=== PATIENT | male | born 1995 | race Caucasian/White ===

== ENCOUNTER 2017-01-26 10:29 | Emergency (ER) | payer MEDICAID ==
[~2017-01-26] VITALS: Wt 78.2 kg
[2017-01-26] MEDS ORDERED: IBUP-1542 PO (11:37)
[2017-01-26] MEDS ORDERED: NEOM28OI TP (11:37)
--- NOTE | 2017-01-26 11:45 | ERD ---
ER Documentation Chief Complaint Date/Time DATE: 01/26/17 TIME: 11:40 Chief Complaint RIGHT PINKY FINGER LACERATION THIS AM BLEEDING CONTROLLED HPI See work comp report below for right fifth digit laceration. ROS All systems reviewed and are negative except as per history of present illness. Medications Home Meds Active Scripts Neomycin Nieto/Bacitrac Zn/Poly (Triple Antibiotic Ointment) 28 Gm Oint...g., 28 GM TP QID for 7 Days Prov:WILL HAN MD 01/26/17 Ibuprofen* (Motrin*) 600 Mg Tab, 600 MG PO Q6, #15 TAB Prov:WILL HAN MD 01/26/17 Allergies Allergies: Coded Allergies: No Known Allergy (Unverified , 01/26/17) PMhx/Soc Medical and Surgical Hx: pt denies Medical Hx, pt denies Surgical Hx Hx Alcohol Use: No Hx Substance Use: No Hx Tobacco Use: No Smoking Status: Never smoker Physical Exam Vitals Vital Signs Date Time Temp Pulse Resp B/P Pulse Ox O2 Delivery O2 Flow Rate FiO2 01/26/17 10:35 97.8 78 20 122/68 99 Physical Exam 18. 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 Tetanus is up-to-date by history 19. Objective findings-afebrile vital signs stable. There is a 0.5 cm avulsion type laceration on the medial aspect of the right fifth digit pad. There is no involvement of the bone is no restricted range of motion or weakness or evidence of tendon disruption. 19 B. X-ray and laboratory results-none 20. Diagnosis-superficial laceration or skin avulsion on the tip of the right fifth digit 21. Findings and diagnosis consistent with patient's account of injury and onset?-Yes 22. Conditions that will impede or delay the patient's recovery? No 23. Treatment rendered-examinATION, history and wound care. Further treatment required-patient will require wound check in 2 days with occupational medicine clinic of employer 24. Patient hospitalized?-No 25. Work status- Able to perform usual work-no. Patient can return on-January 26, 2017. Restrictions-keep wound clean and dry and covered and wear gloves if handling food. Limited use of right hand Results 24 hrs Current Medications Medications (Trade) Dose Ordered Sig/Tamela Route PRN Reason Start Time Stop Time Status Last Admin Dose Admin Ibuprofen (Motrin) 600 mg ONCE ONCE PO 01/26/17 12:00 01/26/17 12:01 Acetaminophen/ Codeine Phosphate (Tylenol No.3) 1 tab ONCE ONCE PO 01/26/17 12:00 01/26/17 12:01 Departure Diagnosis: Primary Impression: Laceration Condition: Stable Patient Instructions: Laceration, Small/Superficial, Not Sutured Additional Instructions: Follow-up with occupational medicine clinic of your employer in 2 days. Recommend keep wound clean and dry or use gloves when handling food until cleared by clinic. WILL HAN MD Jan 26, 2017 11:45
[2017-01-26] MEDS ORDERED: traMADol 50 MG TAB PO ONE (12:00)
[2017-01-26] MEDS ORDERED: IBUPROFEN 600 MG TAB PO ONE (12:00)
[2017-01-26] MEDS ORDERED: ACETAMINOPHEN/CODEINE #3 TAB PO ONE (12:00)
== END 2017-01-26 12:21 | disposition home or self-care (01) ==
LOC: FTE 10:29 → EDBD 10:29 → FTE 12:21
DX: S61.216A Laceration without foreign body of right little finger without damage to nail, initial encounter (principal); W29.0XXA Contact with powered kitchen appliance, initial encounter; Y92.9 Unspecified place or not applicable
CPT/HCPCS: Z7502; Z7610; 99283

== ENCOUNTER 2017-01-29 11:14 | Emergency (ER) | payer MEDICAID ==
[~2017-01-29] VITALS: Ht 165.1 cm; Wt 77.7 kg
[~2017-01-29 11:14] MED LIST: IBUP-1542 PO; NEOM28OI TP
[2017-01-29 11:30] VITALS: Ht 165.1 cm; Wt 77.7 kg
[2017-01-29] MEDS ORDERED: BAC30OI TOP (12:34)
[2017-01-29] MEDS ORDERED: CEPH-443 PO (12:34)
--- NOTE | 2017-01-29 14:39 | ERD ---
DATE OF SERVICE: HISTORY OF PRESENT ILLNESS: The patient is a 21-year-old male coming in complaining of pain to his right 5th digit. The patient cut it using a slicer at work 2 days ago. He is up to date on his tet anus shot. He is right hand dominant. He was seen at that time and it was decided that there shoul d not be sutures placed; however, he continued to have pain, and he did not fill his prescription fo r bacitracin or Keflex because he lost the prescription. PAST MEDICAL HISTORY: He denies any other medical problems. ALLERGIES: DENIES ALLERGIES TO MEDICATIONS. PAST SURGICAL HISTORY: Denies. SOCIAL HISTORY: Denies. REVIEW OF SYSTEMS: A 12-point review of systems was done. Refer to HPI for positives, all other sy stems negative. PHYSICAL EXAMINATION: VITAL SIGNS: Temperature is 97.8, pulse 70, blood pressure is 117/76, respiratory rate 16, O2 satur ation 98% on room air. Pain intensity of 10/10. GENERAL: The patient is well-appearing, well-nourished, no acute distress. HEART: Regular rate and rhythm. No murmurs, clicks, rubs or gallops. No S3 or S4. CHEST: Clear to auscultation bilaterally. There are no rales, wheezes or rhonchi. EXTREMITIES: Equal pulses bilaterally. There is no peripheral clubbing, cyanosis or edema. No focal swelling or erythema. Full range of motion. Grossly neurovascularly intact. SKIN: There is a healing superficial laceration noted on the right medial aspect of the 5th digit d istal tip. No complete avulsion, no active bleeding, no foreign bodies, no tendon or ligament injur ies. EMERGENCY ROOM COURSE: Op site was cleaned and a bandage was applied. There was no indication for suturing or other procedures answered at this time. DIAGNOSIS: Laceration and healing. MEDICAL DECISION MAKING: I have low suspicion for tendon or ligament injury; low suspicion for neur o deficit, low suspicion for retained foreign bodies or active bleeding. The patient's exam is with in normal limits and I have low suspicion for infection. DISCHARGE: The patient is discharged stable. The patient is given prescription for bacitracin and Keflex and told to follow up with primary care within 1 to 2 days for reevaluation. The patient was told if symptoms progress or worsen to return to the ER. All of the patient's questions answered a t time of discharge. Discharge summary given at the time of departure. The patient understood and complied with plan. Dictated By: ZAK SAMANO for YEIMY GALVEZ/DARIO Conf#: [id number] DID#: [id number]
== END 2017-01-29 13:01 | disposition home or self-care (01) ==
LOC: FTE 11:14
DX: S61.216D Laceration without foreign body of right little finger without damage to nail, subsequent encounter (principal); W29.0XXD Contact with powered kitchen appliance, subsequent encounter; Y92.89 Other specified places as the place of occurrence of the external cause
CPT/HCPCS: 99283

== ENCOUNTER 2019-01-18 08:24 | Emergency (ER) | payer OTHER ==
[~2019-01-18] VITALS: Ht 170.2 cm; Wt 77.6 kg
[~2019-01-18 08:24] MED LIST changes: +AMOX500C2 PO; +BACI28.34 TOP; +CEPH-443 PO; -NEOM28OI TP; +NEOM28OI2 TP
[2019-01-18 08:28] VITALS: BP 132/75; PULSE 68; RESP 18; Ht 170.2 cm; Wt 77.6 kg
[2019-01-18] MEDS ORDERED: LIDOCAINE 1% (MPF) 5 ML VIAL INJ ONE (09:30)
[2019-01-18] MEDS ORDERED: BACI28.34 TOP (09:54)
[2019-01-18] MEDS ORDERED: NPH10OT RIGHT EAR (10:04)
--- NOTE | 2019-01-18 10:07 | ERD ---
ER Documentation Chief Complaint Chief Complaint left ingrown toenail and right ear pain x 2 days HPI 23-year-old male presenting with pain to his left great toe. Patient also has pain to his right ear. Patient had pain for the last 2 days. He claims his ears with Q-tips. Denies any headaches. Denies any runny nose. Denies fever. Has not taken medications for symptoms. Patient has noted some purulent drainage from his toenail. Denies other medical problems. NKDA. Surgical history denies. Social history denies ROS All systems reviewed and are negative except as per history of present illness. Medications Home Meds Active Scripts Bacitracin* (Bacitracin Zinc Oint*) 28.35 Gm Oint, 1 APPLIC TOP BID, #1 TUB APPLI TO Prov:GIRISH BELL PA-C 01/18/19 Amoxicillin* (Amoxicillin*) 500 Mg Cap, 500 MG PO BID for sinusitis for 5 Days, #10 CAP Prov:JEWEL SALAMANCA DO 12/03/18 Ibuprofen* (Ibuprofen*) 600 Mg Tablet, 600 MG PO Q6H PRN for PAIN, #30 TAB Prov:JEWEL SALAMANCA DO 12/03/18 Bacitracin* (Bacitracin Zinc Oint*) 28.35 Gm Oint, 1 APPLIC TOP BID, #1 TUB APPLI TO Prov:GIRISH BELL PA-C 01/29/17 Cephalexin* (Keflex*) 500 Mg Capsule, 500 MG PO QID for 5 Days, CAP Prov:GIRISH BELL PA-C 01/29/17 Neomycin Nieto/Bacitrac Zn/Poly (Triple Antibiotic Ointment) 28 Gm Oint...g., 28 GM TP QID for 7 Days Prov:WILL HAN MD 01/26/17 Ibuprofen* (Motrin*) 600 Mg Tab, 600 MG PO Q6, #15 TAB Prov:WILL HAN MD 01/26/17 Allergies Allergies: Coded Allergies: No Known Allergy (Unverified , 12/03/18) PMhx/Soc Medical and Surgical Hx: pt denies Medical Hx, pt denies Surgical Hx Hx Alcohol Use: No Hx Substance Use: No Hx Tobacco Use: No Smoking Status: Never smoker FmHx Family History: No diabetes, No coronary disease, No other Physical Exam Vitals Vital Signs Date Temp Pulse Resp B/P (MAP) Pulse Ox O2 O2 Flow FiO2 Time Delivery Rate 01/18/19 97.6 68 18 132/75 98 08:28 (94) Physical Exam GENERAL: The patient is well-appearing, well-nourished, in no acute distress HEENT: Atraumatic. Conjunctivae are pink. Pupils equal, round, and reactive to light. There is no scleral icterus. Tympanic membranes clear bilaterally. Erythema noted to the external portion of the right ear. Positive tragal tenderness. oropharynx clear. CHEST: Clear to auscultation bilaterally. There are no rales, wheezes or rhonchi. HEART: Regular rate and rhythm. No murmurs, clicks, rubs or gallops. EXTREMITIES: No focal swelling or erythema. Full range of motion. Grossly neurovascularly intact. NEUROLOGIC: Motor strength in all 4 extremities with 5 out of 5 strength. Sensation grossly intact. SKIN: Erythema noted to the lateral portion of the great toenail. Mild swelling noted. Results 24 hrs Current Medications Medications Dose Sig/Tamela Start Time Status Last (Trade) Ordered Route PRN Stop Time Admin Dose Reason Admin Lidocaine 5 ml ONCE ONCE 01/18/19 DC (Xylocaine INJ 09:30 1% (Mpf)) 01/18/19 09:31 Procedures/MDM ER course: Digital block was performed to the left great toe. Site was adequately anesthetized and lateral portion of the toenail was removed without complication. Site was cleaned and bandage. MDM: 23-year-old male presenting with ingrown toenail. Patient also has findings consistent with otitis externa. I have low suspicion for neuro deficit. I have low suspicion for deep tracking infection. Patient is discharged after procedure and told to follow-up with primary care within 1-2 days for close evaluation. I have low suspicion for mastoiditis. I have low suspicion for otitis media. Patient is told symptoms change or worsen to return immediately to the ER. All questions answered at discharge Departure Diagnosis: Primary Impression: Ingrown toenail Condition: Stable Patient Instructions: Ingrown Toenail, Excised Additional Instructions: FOLLOW UP WITH YOUR PRIMARY CARE PHYSICIAN TOMORROW.Return to this facility if you are not improving as expected. GIRISH BELL PA-C Jan 18, 2019 10:07
== END 2019-01-18 10:14 | disposition home or self-care (01) ==
LOC: FTE 08:24
DX: L60.0 Ingrowing nail (principal)
CPT/HCPCS: 11765; Z7502; Z7610

== ENCOUNTER 2019-04-21 01:16 | Emergency (ER) | payer MEDICAID, OTHER ==
[~2019-04-21] VITALS: Ht 162.6 cm; Wt 27.3 kg
[~2019-04-21 01:16] MED LIST changes: +NPH10OT RIGHT EAR
[2019-04-21 01:31] VITALS: Ht 162.6 cm; Wt 27.3 kg
[2019-04-21] MEDS ORDERED: metroNIDAZOLE 500 MG TAB PO STA (01:38)
[2019-04-21] MEDS ORDERED: AZITHROMYCIN 250 MG TAB PO STA (01:38)
[2019-04-21] MEDS ORDERED: CEFTRIAXONE 250 MG INJ IM STA (01:38)
[2019-04-21 02:20] VITALS: BP 115/66; PULSE 55; RESP 16
--- NOTE | 2019-04-21 05:52 | ERD ---
ER Documentation Chief Complaint Chief Complaint GIRFRIEND TREATED FOR GC/CLYMIDIA - REQUESTING TREATMENT HPI 23-year-old male with history of STDs presents the ED requesting STD treatment. Patient is here with his girlfriend to test positive for trichomonas. Patient's denies any penile discharge. Denies any penile swelling or pain. Denies any fevers or chills. He states he would like treatment for gonorrhea and chlamydia as well. He is otherwise asymptomatic and has no complaints. ROS All systems reviewed and are negative except as per history of present illness. Medications Home Meds Active Scripts Neomycin/Polymyxin/Hydrocort* (Cortisporin* Otic) 10 Ml Susp, 4 DROP RIGHT EAR QID for 7 Days, EA Prov:GIRISH BELL PA-C 01/18/19 Bacitracin* (Bacitracin Zinc Oint*) 28.35 Gm Oint, 1 APPLIC TOP BID, #1 TUB APPLI TO Prov:GIRISH BELL PA-C 01/18/19 Amoxicillin* (Amoxicillin*) 500 Mg Cap, 500 MG PO BID for sinusitis for 5 Days, #10 CAP Prov:JEWEL SALAMANCA DO 12/03/18 Ibuprofen* (Ibuprofen*) 600 Mg Tablet, 600 MG PO Q6H PRN for PAIN, #30 TAB Prov:JEWEL SALAMANCA DO 12/03/18 Bacitracin* (Bacitracin Zinc Oint*) 28.35 Gm Oint, 1 APPLIC TOP BID, #1 TUB APPLI TO Prov:GIRISH BELL PA-C 01/29/17 Cephalexin* (Keflex*) 500 Mg Capsule, 500 MG PO QID for 5 Days, CAP Prov:GIRISH BELL PA-C 01/29/17 Neomycin Nieto/Bacitrac Zn/Poly (Triple Antibiotic Ointment) 28 Gm Oint...g., 28 GM TP QID for 7 Days Prov:WILL HAN MD 01/26/17 Ibuprofen* (Motrin*) 600 Mg Tab, 600 MG PO Q6, #15 TAB Prov:WILL HAN MD 01/26/17 Allergies Allergies: Coded Allergies: No Known Allergy (Unverified , 12/03/18) PMhx/Soc Medical and Surgical Hx: pt denies Medical Hx, pt denies Surgical Hx History of Surgery: No Anesthesia Reaction: No Hx Neurological Disorder: No Hx Respiratory Disorders: No Hx Cardiac Disorders: No Hx Psychiatric Problems: No Hx Miscellaneous Medical Probl: No Hx Alcohol Use: No Hx Substance Use: Yes (MJ) Hx Tobacco Use: No Smoking Status: Never smoker Physical Exam Vitals Vital Signs Date Temp Pulse Resp B/P (MAP) Pulse Ox O2 O2 Flow FiO2 Time Delivery Rate 04/21/19 97.9 55 16 115/66 100 Room Air 02:20 (82) 04/21/19 98.0 68 16 112/59 99 01:31 (76) Physical Exam Const: No acute distress Head: Atraumatic Eyes: Normal Conjunctiva ENT: Normal External Ears, Nose and Mouth. Neck: Full range of motion. No meningismus. Resp: Clear to auscultation bilaterally Cardio: Regular rate and rhythm, no murmurs Ext: No cyanosis, or edema Neur: Awake and alert Psych: Normal Mood and Affect Results 24 hrs Laboratory Tests Test 04/21/19 02:00 Urine Color YELLOW Urine Clarity SLIGHTLY CLOUDY Urine pH 5.0 Urine Specific [place] 1.034 Urine Ketones NEGATIVE mg/dL Urine Nitrite NEGATIVE mg/dL Urine Bilirubin NEGATIVE mg/dL Urine Urobilinogen 1+ mg/dL Urine Leukocyte Esterase NEGATIVE Eri/ul Urine Microscopic RBC 1 /HPF Urine Microscopic WBC 1 /HPF Urine Squamous Epithelial Cells FEW /HPF Urine Calcium Oxalate Crystals FEW /HPF Urine Mucus MODERATE /HPF Urine Hemoglobin NEGATIVE mg/dL Urine Glucose NEGATIVE mg/dL Urine Total Protein NEGATIVE mg/dl Current Medications Medications Dose Sig/Tamela Start Time Status Last (Trade) Ordered Route PRN Stop Time Admin Dose Reason Admin 1,000 mg ONCE STAT 04/21/19 DC 04/21/19 Azithromycin PO 01:38 01:53 (Zithromax) 04/21/19 01:40 Ceftriaxone 250 mg ONCE STAT 04/21/19 DC 04/21/19 Sodium IM 01:38 01:53 (Rocephin) 04/21/19 01:40 2,000 mg ONCE STAT 04/21/19 DC 04/21/19 Metronidazole PO 01:38 02:04 (Flagyl) 04/21/19 01:40 Procedures/MDM LABS: Urine CG/CT cx: pending UA: negative, no evidence of infection MDM: This is a 23-year-old sexually active male presents the ED for prophylactic treatment of STDs. He has had STDs before. He is here with his girlfriend who tested positive for trichomonas. Patient was given a prophylactic dose of ceftriaxone, azithromycin, and metronidazole. His urine was sent out for gonorrhea and chlamydia culture testing. Patient has stable vital signs here. No fever. He is stable for outpatient management and follow-up. I recommended safe sexual and hygiene practices. Strict return precautions were discussed. Departure Diagnosis: Primary Impression: Trichomonas contact Additional Impression: STD exposure Condition: Stable Patient Instructions: Understanding STDs Additional Instructions: Call your primary care doctor TOMORROW for an appointment during the next 2-4 days and bring all the information and medications prescribed. If the symptoms get worse and your provider is unavailable, return to the Emergency Department immediately. MJ REDMOND PA-C April 21, 2019 05:52
== END 2019-04-21 02:21 | disposition home or self-care (01) ==
LOC: E/R 01:16 → FTE 02:21
DX: A59.9 Trichomoniasis, unspecified (principal)
CPT/HCPCS: 81001; 87086; 96372; 99284; J0696; 81003

== ENCOUNTER 2019-05-11 21:54 | Emergency (ER) | payer MEDICAID, OTHER ==
[~2019-05-11] VITALS: Ht 162.6 cm; Wt 79.3 kg
[2019-05-11 22:01] VITALS: Ht 162.6 cm; Wt 79.3 kg
--- NOTE | 2019-05-11 22:40 | PSY ---
Date/Time of Note Date/Time of Note DATE: 05/11/19 TIME: 22:33 Psychiatric Subjective Eval Consent Pt consented to telemedicine: Yes Subjective Evaluation Patient location: emergency Chief Complaint: C/O AP, LOSS OF APPETITE X'S 4 DAYS. STATES HE HAS SI WITH NO PLAN. Medical history Problems Medical Problems: (1) Ingrown toenail Status: Acute (2) Laceration Status: Acute (3) Laceration Status: Acute (4) Sore throat Status: Acute (5) Sore throat Status: Acute (6) STD exposure Status: Acute (7) STD exposure Status: Acute (8) Trichomonas contact Status: Acute (9) Trichomonas contact Status: Acute Allergies: Coded Allergies: No Known Allergy (Unverified , 12/03/18) Assessment and Plan Recommendation/Plan Discharge Disposition: Psychiatric inpatient Legal Status: Voluntary Assessment Additional comments: IDENTIFYING INFORMATION: 23 year old Male patient who is currently located at the hospital and for whom psychiatric consultation was requested. SOURCES OF INFORMATION: The patient who appears to be somewhat reliable and the medical records; the nursing staff. CHIEF COMPLAINT: "thinking of suicide". HISTORY OF PRESENT ILLNESS: The patient was interviewed via telemedicine in the presence of and under the supervision of nursing staff of the hospital. The consent to conducting this interview via telemedicine was obtained by the nursing staff at the hospital. TALISHA Dubois reports that the patient presented with thoughts of harming himself. The patient reports having thoughts of suicide, has been depressed, has had anhedonia, low appetite. The patient denies having AH, VH, delusions, insomnia. The patient denies using alcohol heavily or regularly. Admits to MJ use. The patient denies using any other substances. In terms of past psychiatric history, the patient reports having a history of past psychiatric hospitalizations. The patient reports having a history of past suicide attempt. PAST MEDICAL HISTORY: none. CURRENT MEDICATIONS: none. ALLERGIES TO MEDICATIONS: NKDA. LABORATORY TESTS: pending. SOCIAL HISTORY: lives with girlfriend, single, no kids, no access to firearms. REVIEW OF SYSTEMS: Constitutional (e.g., fever, weight loss): negative; Eyes, Ears, Nose, Mouth, Throat: negative; Cardiovascular: negative; Respiratory: negative; Gastrointestinal: negative; Genitourinary: negative; Musculoskeletal: negative; Integumentary (skin and/or breast): negative; Neurological: negative; Psychiatric: as per HPI; Endocrine: negative; Hematologic/Lymphatic: negative; Allergic/Immunologic: negative. MENTAL STATUS EXAMINATION: General Appearance and Behavior: Calm, cooperative with the interview, pleasant with the current interviewer, makes fair eye contact, fairly groomed, no abnormal movements noted, Speech: Regular rate, regular rhythm, normal latency, normal volume, somewhat decreased amount, Flow of thought: sequential, logical, goal-directed, Content of thought: no auditory hallucinations, no visual hallucinations, no delusions, positive for suicidal ideation; no homicidal ideation, Mood: "depressed", Affect: dysthymic, dysphoric, not reactive, Attention: normal based on the interview, Insight: fair, Judgment: poor, Memory: normal based on the interview, Sensorium: alert and oriented to person, place and date. ASSESSMENT: The patient's presentation and history are consistent with the diagnosis of unspecified mood disorder. The patient presents in a major depressive episode in the context of medication noncompliance, psychosocial stressors, cannabis use. No evidence of psychosis, danish, hypomania on exam. PLAN: - Medication management: Would start celexa 20 mg po qday if UDS is + only for MJ and CBC, CMP are unremarkable. Would start haloperidol 5 mg IM PRN severe agitation q4 hours. Would start diphenhydramine 50 mg IM PRN severe agitation q4 hours. Would start lorazepam 2 mg IM PRN severe agitation q4 hours Will defer to the inpatient psychiatry team for other medication changes. - Labs: Please check CBC, CMP, Alcohol level, UDS. - Psychotherapy: Provided supportive psychotherapy and psychoeducation. - Disposition: Would recommend voluntary admission to the inpatient psychiatric unit as the patient would benefit from such an intervention so long as the patient has been cleared medically for admission to psychiatry. The patient is agreeable to being hospitalized in the inpatient psychiatric unit at this time. Would place on suicide precautions. I called the emergency room physician who is taking care of the patient to discuss about the above plan but the emergency room physician is not available at this time. I left my phone number with the hospital staff requesting a callback so that the emergency room physician can reach me when they become available. VANESSA CASTRO MD May 11, 2019 22:40
--- NOTE | 2019-05-12 02:21 | ERD ---
ER Documentation Chief Complaint Chief Complaint C/O AP, LOSS OF APPETITE X'S 4 DAYS. STATES HE HAS SI WITH NO PLAN. HPI Is a 23-year-old male complains of abdominal pain loss after 4 days and this is a suicide without plan. Denies auditory. Denies homicidal ideation. Denies any other current complaints. ROS All systems reviewed and are negative except as per history of present illness. Medications Home Meds Discontinued Scripts Neomycin/Polymyxin/Hydrocort* (Cortisporin* Otic) 10 Ml Susp, 4 DROP RIGHT EAR QID for 7 Days, EA Prov:GIRISH BELL PA-C 01/18/19 Bacitracin* (Bacitracin Zinc Oint*) 28.35 Gm Oint, 1 APPLIC TOP BID, #1 TUB APPLI TO Prov:GIRISH BELL PA-C 01/18/19 Amoxicillin* (Amoxicillin*) 500 Mg Cap, 500 MG PO BID for sinusitis for 5 Days, #10 CAP Prov:JEWEL SALAMANCA DO 12/03/18 Ibuprofen* (Ibuprofen*) 600 Mg Tablet, 600 MG PO Q6H PRN for PAIN, #30 TAB Prov:JEWEL SALAMANCA DO 12/03/18 Bacitracin* (Bacitracin Zinc Oint*) 28.35 Gm Oint, 1 APPLIC TOP BID, #1 TUB APPLI TO Prov:GIRISH BELL PA-C 01/29/17 Cephalexin* (Keflex*) 500 Mg Capsule, 500 MG PO QID for 5 Days, CAP Prov:GIRISH BELL PA-C 01/29/17 Neomycin Nieto/Bacitrac Zn/Poly (Triple Antibiotic Ointment) 28 Gm Oint...g., 28 GM TP QID for 7 Days Prov:WILL HAN MD 01/26/17 Ibuprofen* (Motrin*) 600 Mg Tab, 600 MG PO Q6, #15 TAB Prov:WILL HAN MD 01/26/17 Allergies Allergies: Coded Allergies: No Known Allergy (Unverified , 05/12/19) PMhx/Soc History of Surgery: No Anesthesia Reaction: No Hx Neurological Disorder: No Hx Respiratory Disorders: No Hx Cardiac Disorders: No Hx Psychiatric Problems: Yes (used to take risperdal; on hold before; anger issues) Hx Miscellaneous Medical Probl: No Hx Alcohol Use: No Hx Substance Use: No Hx Tobacco Use: No Smoking Status: Never smoker Physical Exam Vitals Vital Signs Date Temp Pulse Resp B/P (MAP) Pulse Ox O2 O2 Flow FiO2 Time Delivery Rate 05/12/19 98.5 67 16 118/71 100 Room Air 00:41 (87) 05/11/19 98.3 72 18 150/73 98 22:01 (98) Physical Exam Const: No acute distress Head: Atraumatic Eyes: Normal Conjunctiva ENT: Normal External Ears, Nose and Mouth. Neck: Full range of motion. No meningismus. Resp: Clear to auscultation bilaterally Cardio: Regular rate and rhythm, no murmurs Abd: Soft, non tender, non distended. Normal bowel sounds Skin: No petechiae or rashes Back: No midline or flank tenderness Ext: No cyanosis, or edema Neur: Awake and alert Psych: Normal Mood and Affect Result Diagram: 05/11/19224405/11/192244 Results 24 hrs Laboratory Tests Test 05/11/19 22:45 White Blood Count 12.5 10^3/ul Red Blood Count 5.12 10^6/ul Hemoglobin 15.5 g/dl Hematocrit 43.4 % Mean Corpuscular Volume 84.8 fl Mean Corpuscular Hemoglobin 30.3 pg Mean Corpuscular Hemoglobin Concent 35.7 g/dl Red Cell Distribution Width 12.2 % Platelet Count 214 10^3/UL Mean Platelet Volume 11.0 fl Immature Granulocytes % 0.300 % Neutrophils % 78.9 % Lymphocytes % 14.7 % Monocytes % 4.9 % Eosinophils % 0.6 % Basophils % 0.6 % Nucleated Red Blood Cells % 0.0 /100WBC Immature Granulocytes # 0.040 10^3/ul Neutrophils # 9.9 10^3/ul Lymphocytes # 1.8 10^3/ul Monocytes # 0.6 10^3/ul Eosinophils # 0.1 10^3/ul Basophils # 0.1 10^3/ul Nucleated Red Blood Cells # 0.0 10^3/ul Urine Color YELLOW Urine Clarity CLEAR Urine pH 6.0 Urine Specific [place] 1.024 Urine Ketones TRACE mg/dL Urine Nitrite NEGATIVE mg/dL Urine Bilirubin NEGATIVE mg/dL Urine Urobilinogen 1+ mg/dL Urine Leukocyte Esterase NEGATIVE Eri/ul Urine Hemoglobin NEGATIVE mg/dL Urine Glucose NEGATIVE mg/dL Urine Total Protein NEGATIVE mg/dl Sodium Level 141 mmol/L Potassium Level 3.8 mmol/L Chloride Level 104 mmol/L Carbon Dioxide Level 25 mmol/L Anion Gap 12 Blood Urea Nitrogen 20 mg/dl Creatinine 0.86 mg/dl Est Glomerular Filtrat Rate mL/min > 60 mL/min Glucose Level 94 mg/dl Calcium Level 9.4 mg/dl Total Bilirubin 0.6 mg/dl Direct Bilirubin 0.00 mg/dl Indirect Bilirubin 0.6 mg/dl Aspartate Amino Transf (AST/SGOT) 26 IU/L Alanine Aminotransferase (ALT/SGPT) 28 IU/L Alkaline Phosphatase 66 IU/L Total Protein 8.1 g/dl Albumin 4.5 g/dl Globulin 3.60 g/dl Albumin/Globulin Ratio 1.25 Salicylates Level < 1.0 mg/dl Urine Opiates Screen Negative Acetaminophen Level < 10.0 ug/ml Urine Barbiturates Negative Urine Amphetamines Screen Negative Urine Benzodiazepines Screen Negative Urine Cocaine Screen Negative Urine Cannabinoids Positive Ethyl Alcohol Level < 10.0 mg/dl Procedures/MDM Patient's behavioral symptoms have stabilized while in the department. Patient is medically cleared and appropriate for psychiatric evaluation and work up. No e/o neurologic, toxic, infectious, or metabolic cause. Telemetry psychiatry recommended voluntary admission to psychiatric unit\pending placement at this time Departure Diagnosis: Primary Impression: Suicidal ideation Condition: VIET Gray May 12, 2019 02:21
[2019-05-12 05:45] VITALS: BP 125/85; PULSE 77; RESP 18
== END 2019-05-12 06:13 ==
LOC: E/R 21:54
DX: R45.851 Suicidal ideations (principal); R40.2142 Coma scale, eyes open, spontaneous, at arrival to emergency department; R40.2252 Coma scale, best verbal response, oriented, at arrival to emergency department; R40.2362 Coma scale, best motor response, obeys commands, at arrival to emergency department
CPT/HCPCS: 36415; 80053; 80307; 81003; 85025; Z7502